=== PATIENT | female | born 1965 | race Caucasian/White ===

== ENCOUNTER 2017-02-06 13:21 | Inpatient (IN) | payer OTHER ==
[~2017-02-06] VITALS: Ht 167.6 cm; Wt 113.1 kg
[~2017-02-06 13:21] MED LIST: AMLODIPINE5 M1 PO; BACTRIM1 TAB PO; CIPRO500 MG PO; COUMADIN3 MG PO; COUMADIN5 MG PO; FLUOXETINE HCL20 MG PO; LAC PO; NOR10T PO; OXYBUTYNIN CHLOR5 MG PO
[2017-02-06 14:24] LABS: BASOPHIL % 0.5 % (0-2); PLATELET COUNT 305 x10^3mcL (130-400); RED CELL DISTRIBUTION WIDTH 14.4 % (11.5-14.5)
[2017-02-06 14:31] LABS: CALCIUM 8.3 mg/dL (8.5-10.1); CARBON DIOXIDE 21.4 mmol/L (21-32); CHLORIDE SERUM 106 mmol/L (98-107); GFR1 > 60 mL/min; GLUCOSE SERUM 96 mg/dL (74-106); POTASSIUM SERUM 3.7 mmol/L (3.5-5.1); SODIUM SERUM 138 mmol/L (136-145)
[2017-02-06 14:36] LABS: ALBUMIN 3.4 g/dL (3.4-5.0); ALKALINE PHOSPHATASE 60 U/L (46-116); ALT/SGPT 21 U/L (14-59); AST/SGOT 20 U/L (15-37); BILIRUBIN TOTAL 0.28 mg/dL (0.20-1.00); TOTAL PROTEIN, SERUM 8.2 g/dL (6.4-8.2)
[2017-02-06] MEDS ORDERED: PROZAC40 MG PO (15:17)
[2017-02-06] MEDS ORDERED: XANAX0.25 MG PO (15:18)
[2017-02-06] MEDS ORDERED: TOPAMAX25 MG PO (15:19)
[2017-02-06] MEDS ORDERED: COUMADIN3 MG PO (15:19)
[2017-02-06] MEDS ORDERED: OXYBUTYNIN CHLOR5 MG PO (15:20)
[2017-02-06 16:40] VITALS: BP 122/50
[2017-02-06 17:04] LABS: MAGNESIUM 2.2 mg/dL (1.8-2.4); PHOSPHOROUS 2.8 mg/dL (2.5-4.9); T3 TOTAL 1.22 ng/mL
[2017-02-06 17:06] LABS: CHOLESTEROL/HDL RATIO 5.2
[2017-02-06 17:07] LABS: FREE T4 1.17 ng/dL (0.76-1.46); FREE THYROXINE INDEX 3.2 ug/dL (1.4-4.5); T4(THYROXINE) 9.8 ug/dL (4.7-13.3)
[2017-02-06 21:26] VITALS: BP 121/58
[2017-02-07 05:25] VITALS: BP 106/44; BP 121/58
[2017-02-07 06:10] LABS: BASOPHIL % 0.5 % (0-2); PLATELET COUNT 278 x10^3mcL (130-400)
[2017-02-07 06:12] LABS: RED CELL DISTRIBUTION WIDTH 14.6 % (11.5-14.5)
[2017-02-07 06:37] LABS: CALCIUM 8.1 mg/dL (8.5-10.1); CARBON DIOXIDE 21.2 mmol/L (21-32); CHLORIDE SERUM 109 mmol/L (98-107); CREATININE SERUM 0.8 mg/dL (0.6-1.0); GFR1 > 60 mL/min; GLUCOSE SERUM 99 mg/dL (74-106); MAGNESIUM 2.4 mg/dL (1.8-2.4); PHOSPHOROUS 3.4 mg/dL (2.5-4.9); POTASSIUM SERUM 3.5 mmol/L (3.5-5.1); SODIUM SERUM 140 mmol/L (136-145)
[2017-02-07 09:00] VITALS: BP 121/55
[2017-02-07 11:24] VITALS: BP 121/55
[2017-02-07] MEDS ORDERED: LIPI10 PO (11:38)
[2017-02-07] MEDS ORDERED: ECO81 PO (11:40)
[2017-02-07] MEDS ORDERED: ELIQUIS2.5 MG PO (11:43)
[2017-02-07 12:00] VITALS: BP 127/60
[2017-02-09] MEDS ORDERED: BACTROBAN21 ×2 (20:40→20:51)
[2017-02-09] MEDS ORDERED: HIB240 TOP ×3 (20:40→20:55)
== END 2017-02-07 13:11 | disposition home or self-care (01) | DRG 47 ==
LOC: ED 13:21 → DU 15:30
PROVIDERS: Emergency Medicine; ADMIT Family Medicine Sports Medicine
DX: G45.9 Transient cerebral ischemic attack, unspecified (principal); D68.69 Other thrombophilia; Z68.41 Body mass index [BMI] 40.0-44.9, adult; E44.1 Mild protein-calorie malnutrition; F33.9 Major depressive disorder, recurrent, unspecified; E66.01 Morbid (severe) obesity due to excess calories; M06.9 Rheumatoid arthritis, unspecified; M79.7 Fibromyalgia; F41.9 Anxiety disorder, unspecified; E11.9 Type 2 diabetes mellitus without complications; I10 Essential (primary) hypertension; Z53.29 Procedure and treatment not carried out because of patient's decision for other reasons; M47.897 Other spondylosis, lumbosacral region; E78.5 Hyperlipidemia, unspecified; Z86.711 Personal history of pulmonary embolism; Z87.891 Personal history of nicotine dependence; Z79.01 Long term (current) use of anticoagulants; Z86.718 Personal history of other venous thrombosis and embolism; Z86.73 Personal history of transient ischemic attack (TIA), and cerebral infarction without residual deficits; Z98.51 Tubal ligation status; Z90.49 Acquired absence of other specified parts of digestive tract; Z79.899 Other long term (current) drug therapy; Z82.49 Family history of ischemic heart disease and other diseases of the circulatory system; Z82.3 Family history of stroke
CPT/HCPCS: 82962; 83880; 84439; J7030; Q0092

== ENCOUNTER 2017-04-05 15:39 | Inpatient (IN) | payer OTHER ==
[~2017-04-05] VITALS: Ht 167.6 cm; Wt 111.1 kg
[~2017-04-05 15:39] MED LIST changes: -AMLODIPINE5 M1 PO; +BACTROBAN21; +ECO81 PO; +ELIQUIS2.5 MG PO; +HIB240 TOP; +LIPI10 PO; +NOR5 PO; +PROZAC40 MG PO; +TOPAMAX25 MG PO; +XANAX0.25 MG PO
[2017-04-05 16:53] LABS: BASOPHIL % 0.4 % (0-2); PLATELET COUNT 341 x10^3mcL (130-400); RED CELL DISTRIBUTION WIDTH 13.6 % (11.5-14.5)
[2017-04-05 17:03] LABS: CALCIUM 8.9 mg/dL (8.5-10.1); CARBON DIOXIDE 22.3 mmol/L (21-32); CHLORIDE SERUM 107 mmol/L (98-107); CREATININE SERUM 0.9 mg/dL (0.6-1.0); GFR1 > 60 mL/min; GLUCOSE SERUM 125 mg/dL (74-106); POTASSIUM SERUM 3.6 mmol/L (3.5-5.1); SODIUM SERUM 141 mmol/L (136-145)
[2017-04-05 17:04] LABS: ALBUMIN 3.4 g/dL (3.4-5.0); ALKALINE PHOSPHATASE 77 U/L (46-116); ALT/SGPT 29 U/L (14-59); AST/SGOT 16 U/L (15-37); BILIRUBIN TOTAL 0.31 mg/dL (0.20-1.00); TOTAL PROTEIN, SERUM 8.5 g/dL (6.4-8.2)
[2017-04-05] MEDS ORDERED: PROZAC40 MG PO (21:00)
[2017-04-05] MEDS ORDERED: ATIVAN1 MG PO (21:01)
[2017-04-05] MEDS ORDERED: NORCO 10-325 T1 EACH PO (21:01)
[2017-04-05] MEDS ORDERED: TOPAMAX50 M1 PO (21:01)
[2017-04-05] MEDS ORDERED: XANAX0.25 MG PO (21:01)
[2017-04-05] MEDS ORDERED: GOOD SENSE ASPI81 M3 PO (21:02)
[2017-04-05] MEDS ORDERED: ELIQUIS2.5 MG (21:02)
[2017-04-05] MEDS ORDERED: NOR5 PO (21:02)
[2017-04-05] MEDS ORDERED: OXYBUTYNIN CHLOR5 MG PO (21:02)
[2017-04-05] MEDS ORDERED: LIPI10 (21:02)
[2017-04-05] MEDS ORDERED: ZANAFLEX CAPSULE4 MG PO (21:03)
[2017-04-05 21:23] LABS: microscopic required? YES; urine erythrocyte 2+ (NEGATIVE)
[2017-04-05 21:28] LABS: T3 TOTAL 0.92 ng/mL
[2017-04-05 21:32] LABS: FREE T4 1.09 ng/dL (0.76-1.46); FREE THYROXINE INDEX 2.8 ug/dL (1.4-4.5); T4(THYROXINE) 9.1 ug/dL (4.7-13.3)
[2017-04-05 21:33] LABS: AMPHETAMINE QUAL UR NONE DETECTED (NEG <=1000)
[2017-04-05 21:42] VITALS: BP 129/75
[2017-04-05 21:46] LABS: CHOLESTEROL/HDL RATIO 3.3; MAGNESIUM 2.1 mg/dL (1.8-2.4); PHOSPHOROUS 3.7 mg/dL (2.5-4.9)
[2017-04-06 05:34] VITALS: BP 132/68
[2017-04-06 06:27] LABS: BASOPHIL % 0.4 % (0-2); PLATELET COUNT 278 x10^3mcL (130-400); RED CELL DISTRIBUTION WIDTH 13.4 % (11.5-14.5)
[2017-04-06 06:43] LABS: CALCIUM 8.2 mg/dL (8.5-10.1); CARBON DIOXIDE 23.2 mmol/L (21-32); CHLORIDE SERUM 108 mmol/L (98-107); CREATININE SERUM 0.8 mg/dL (0.6-1.0); GFR1 > 60 mL/min; GLUCOSE SERUM 110 mg/dL (74-106); POTASSIUM SERUM 3.6 mmol/L (3.5-5.1); SODIUM SERUM 140 mmol/L (136-145)
[2017-04-06 09:50] VITALS: BP 136/73
[2017-04-06 12:40] VITALS: BP 143/72
[2017-04-06 16:56] VITALS: BP 149/68
[2017-04-06 21:14] VITALS: BP 125/77
[2017-04-07 05:36] VITALS: BP 137/67
[2017-04-07 06:20] LABS: CALCIUM 8.5 mg/dL (8.5-10.1); CARBON DIOXIDE 26.1 mmol/L (21-32); CHLORIDE SERUM 110 mmol/L (98-107); CREATININE SERUM 0.8 mg/dL (0.6-1.0); GFR1 > 60 mL/min; GLUCOSE SERUM 108 mg/dL (74-106); POTASSIUM SERUM 4.3 mmol/L (3.5-5.1); SODIUM SERUM 144 mmol/L (136-145)
[2017-04-07 06:45] LABS: BASOPHIL % 0.3 % (0-2); PLATELET COUNT 286 x10^3mcL (130-400); RED CELL DISTRIBUTION WIDTH 13.7 % (11.5-14.5)
[2017-04-07 08:46] VITALS: BP 138/66
[2017-04-07 13:40] VITALS: BP 140/68
[2017-04-07] MEDS ORDERED: KEFLEX500 M1 PO (14:43)
[2017-04-07] MEDS ORDERED: BD LACTINEX1.4 MG PO (14:44)
[2017-04-07] MEDS ORDERED: NITROSTAT0.4 MG SL (14:46)
[2017-04-07] MEDS ORDERED: GOOD SENSE OMEP20 MG PO (15:19)
[2017-04-07] MEDS ORDERED: BACTROBAN22 TOP (15:27)
== END 2017-04-07 16:27 | disposition home or self-care (01) | DRG 243 ==
LOC: ED 15:39 → DU 20:10
PROVIDERS: Emergency Medicine; ADMIT Family Medicine
DX: K21.9 Gastro-esophageal reflux disease without esophagitis (principal); E66.01 Morbid (severe) obesity due to excess calories; N39.0 Urinary tract infection, site not specified; M06.9 Rheumatoid arthritis, unspecified; M79.7 Fibromyalgia; M51.37 Other intervertebral disc degeneration, lumbosacral region; R31.9 Hematuria, unspecified; F31.30 Bipolar disorder, current episode depressed, mild or moderate severity, unspecified; F41.9 Anxiety disorder, unspecified; R32 Unspecified urinary incontinence; Z68.39 Body mass index [BMI] 39.0-39.9, adult; Z86.711 Personal history of pulmonary embolism; Z79.01 Long term (current) use of anticoagulants; Z86.718 Personal history of other venous thrombosis and embolism; Z86.73 Personal history of transient ischemic attack (TIA), and cerebral infarction without residual deficits; Z86.14 Personal history of Methicillin resistant Staphylococcus aureus infection; I20.9 Angina pectoris, unspecified
CPT/HCPCS: 83880; 84439; J0696; J1170; J7030; Q0092; Q9967

== ENCOUNTER 2018-01-18 07:51 | Emergency (ER) | payer OTHER ==
[~2018-01-18] VITALS: Ht 165.1 cm; Wt 114.4 kg
[~2018-01-18 07:51] MED LIST changes: +ATIVAN1 MG PO; +BACTROBAN22 TOP; +BD LACTINEX1.4 MG PO; +ELIQUIS2.5 MG; +GOOD SENSE ASPI81 M3 PO; +GOOD SENSE OMEP20 MG PO; +KEFLEX500 M1 PO; +LIPI10; +NITROSTAT0.4 MG SL; +NORCO 10-325 T1 EACH PO; +TOPAMAX50 M1 PO; +ZANAFLEX CAPSULE4 MG PO
[2018-01-18 08:03] VITALS: Ht 165.1 cm; Wt 114.4 kg
[2018-01-18 09:42] VITALS: BP 114/64
== END 2018-01-18 10:11 | disposition home or self-care (01) ==
LOC: ED 07:51
DX: M25.561 Pain in right knee (principal); M79.1 Myalgia; I10 Essential (primary) hypertension; M79.7 Fibromyalgia; Z90.49 Acquired absence of other specified parts of digestive tract; Z98.51 Tubal ligation status; Z90.89 Acquired absence of other organs
CPT/HCPCS: Q0092

== ENCOUNTER 2018-09-25 13:50 | Emergency (ER) | payer OTHER ==
[~2018-09-25] VITALS: Ht 167.6 cm; Wt 118.4 kg
[2018-09-25 13:53] VITALS: Ht 167.6 cm; Wt 118.4 kg
[2018-09-25 14:44] LABS: BASOPHIL % 0.3 % (0-2); PLATELET COUNT 267 x10^3mcL (130-400)
[2018-09-25 14:45] LABS: RED CELL DISTRIBUTION WIDTH 14.9 % (11.5-14.5)
[2018-09-25 15:45] VITALS: BP 148/87
[2018-09-25 16:16] LABS: CALCIUM 8.3 mg/dL (8.5-10.1); CARBON DIOXIDE 23.6 mmol/L (21-32); CHLORIDE SERUM 108 mmol/L (98-107); CREATININE SERUM 0.8 mg/dL (0.6-1.0); GFR1 > 60 mL/min; GLUCOSE SERUM 88 mg/dL (74-106); POTASSIUM SERUM 3.6 mmol/L (3.5-5.1); SODIUM SERUM 142 mmol/L (136-145)
[2018-09-25 16:20] LABS: ALKALINE PHOSPHATASE 76 U/L (46-116); ALT/SGPT 19 U/L (14-59); AST/SGOT 15 U/L (15-37); BILIRUBIN TOTAL 0.3 mg/dL (0.20-1.00); TOTAL PROTEIN, SERUM 7.9 g/dL (6.4-8.2)
[2018-09-25 16:21] LABS: ALBUMIN 3.2 g/dL (3.4-5.0)
== END 2018-09-25 16:18 | disposition home or self-care (01) ==
LOC: ED 13:50
PROVIDERS: Emergency Medicine
DX: R53.1 Weakness (principal); R20.0 Anesthesia of skin; R53.83 Other fatigue; R41.0 Disorientation, unspecified; I10 Essential (primary) hypertension; M79.7 Fibromyalgia; M06.9 Rheumatoid arthritis, unspecified; F31.9 Bipolar disorder, unspecified; Z98.51 Tubal ligation status; Z98.890 Other specified postprocedural states
CPT/HCPCS: 36415; Q0092

== ENCOUNTER 2019-01-16 08:42 | Emergency (ER) | payer OTHER ==
[~2019-01-16] VITALS: Ht 167.6 cm; Wt 115.7 kg
[2019-01-16 08:55] VITALS: Ht 167.6 cm; Wt 115.7 kg
[2019-01-16 09:43] LABS: BASOPHIL % 0.2 % (0-2); PLATELET COUNT 300 x10^3mcL (130-400); RED CELL DISTRIBUTION WIDTH 13.7 % (11.5-14.5)
[2019-01-16 09:58] LABS: CALCIUM 8.3 mg/dL (8.5-10.1); CARBON DIOXIDE 24.4 mmol/L (21-32); CHLORIDE SERUM 109 mmol/L (98-107); CREATININE SERUM 0.9 mg/dL (0.6-1.0); GFR1 > 60 mL/min; GLUCOSE SERUM 113 mg/dL (74-106); POTASSIUM SERUM 4.1 mmol/L (3.5-5.1); SODIUM SERUM 143 mmol/L (136-145)
[2019-01-16 10:05] LABS: ALBUMIN 3.2 g/dL (3.4-5.0); ALKALINE PHOSPHATASE 81 U/L (46-116); ALT/SGPT 23 U/L (14-59); AST/SGOT 10 U/L (15-37); LIPASE 112 IU/L (73-393); TOTAL PROTEIN, SERUM 7.9 g/dL (6.4-8.2)
[2019-01-16 12:44] VITALS: BP 105/51
[2019-01-16 13:05] LABS: UA SPECIFIC GRAVITY 1.025 (1.005-1.035); microscopic required? YES; urine erythrocyte TRACE (NEGATIVE)
== END 2019-01-16 13:01 | disposition home or self-care (01) ==
LOC: ED 08:42
PROVIDERS: Emergency Medicine
DX: E86.0 Dehydration (principal); N39.0 Urinary tract infection, site not specified; I10 Essential (primary) hypertension; M79.7 Fibromyalgia; M06.9 Rheumatoid arthritis, unspecified; Z98.890 Other specified postprocedural states
CPT/HCPCS: J1885; J2405; J7030

== ENCOUNTER 2019-11-02 15:21 | Inpatient (IN) | payer OTHER, SELFPAY ==
[~2019-11-02] VITALS: Ht 167.6 cm; Wt 117.6 kg
[2019-11-02 15:28] VITALS: Ht 167.6 cm; Wt 117.6 kg
[2019-11-02 16:35] LABS: BASOPHIL % 0.6 % (0-2); PLATELET COUNT 274 x10^3mcL (130-400); RED CELL DISTRIBUTION WIDTH 14.2 % (11.5-14.5)
[2019-11-02 16:53] LABS: CALCIUM 8.4 mg/dL (8.5-10.1); CARBON DIOXIDE 22.2 mmol/L (21-32); CREATININE SERUM 1.1 mg/dL (0.6-1.0); POTASSIUM SERUM 3.6 mmol/L (3.5-5.1)
[2019-11-02 16:58] LABS: BILIRUBIN TOTAL 0.21 mg/dL (0.20-1.00); C REACTIVE PROTEIN 2.4 mg/dL (<=0.9); TOTAL PROTEIN, SERUM 7.5 g/dL (6.4-8.2)
[2019-11-02 17:09] LABS: ALBUMIN 3.1 g/dL (3.4-5.0)
[2019-11-02 20:20] LABS: MAGNESIUM 2.2 mg/dL (1.8-2.4); PHOSPHOROUS 3.9 mg/dL (2.5-4.9)
[2019-11-02 20:43] LABS: FREE T4 1.07 ng/dL (0.76-1.46); FREE THYROXINE INDEX 2.8 ug/dL (1.4-4.5); T4(THYROXINE) 8.7 ug/dL (4.7-13.3)
[2019-11-02 21:13] VITALS: BP 119/63
[2019-11-03 05:37] VITALS: BP 126/69
[2019-11-03 07:51] LABS: BASOPHIL % 0.6 % (0-2); PLATELET COUNT 266 x10^3mcL (130-400); RED CELL DISTRIBUTION WIDTH 13.9 % (11.5-14.5)
[2019-11-03 08:04] LABS: C REACTIVE PROTEIN 2.3 mg/dL (<=0.9); CALCIUM 8.3 mg/dL (8.5-10.1); CARBON DIOXIDE 28.3 mmol/L (21-32); CHLORIDE SERUM 107 mmol/L (98-107); GFR1 > 60 mL/min; GLUCOSE SERUM 87 mg/dL (74-106); MAGNESIUM 2.3 mg/dL (1.8-2.4); POTASSIUM SERUM 3.9 mmol/L (3.5-5.1); SODIUM SERUM 143 mmol/L (136-145)
[2019-11-03 09:26] VITALS: BP 129/68
[2019-11-03 13:57] VITALS: BP 126/65
[2019-11-03 18:35] VITALS: BP 146/86
[2019-11-03 20:00] VITALS: BP 129/64
[2019-11-04 06:10] VITALS: BP 108/62
[2019-11-04 06:57] LABS: BASOPHIL % 0.4 % (0-2); PLATELET COUNT 275 x10^3mcL (130-400)
[2019-11-04 07:37] LABS: CHLORIDE SERUM 107 mmol/L (98-107); CREATININE SERUM 0.9 mg/dL (0.6-1.0); GFR1 > 60 mL/min; GLUCOSE SERUM 105 mg/dL (74-106); MAGNESIUM 2.2 mg/dL (1.8-2.4); PHOSPHOROUS 3.9 mg/dL (2.5-4.9); POTASSIUM SERUM 3.8 mmol/L (3.5-5.1); SODIUM SERUM 143 mmol/L (136-145)
[2019-11-04 08:13] VITALS: BP 115/56
[2019-11-04 10:04] LABS: T3 TOTAL 1.07 ng/mL
[2019-11-04 12:39] VITALS: BP 156/76
[2019-11-04 16:41] VITALS: BP 126/53
[2019-11-04 16:59] VITALS: BP 126/53
== END 2019-11-04 18:38 | disposition home or self-care (01) | DRG 203 ==
LOC: ED 15:21 → DU 18:39
PROVIDERS: Emergency Medicine; ADMIT Family Medicine; ATTEND Family Medicine
DX: R07.89 Other chest pain (principal); E44.1 Mild protein-calorie malnutrition; F31.9 Bipolar disorder, unspecified; Z68.42 Body mass index [BMI] 45.0-49.9, adult; M06.9 Rheumatoid arthritis, unspecified; M79.7 Fibromyalgia; M54.5 Low back pain; Z20.828 Contact with and (suspected) exposure to other viral communicable diseases; Z86.718 Personal history of other venous thrombosis and embolism; Z79.01 Long term (current) use of anticoagulants; Z86.711 Personal history of pulmonary embolism; Z86.73 Personal history of transient ischemic attack (TIA), and cerebral infarction without residual deficits; Z90.89 Acquired absence of other organs; Z90.49 Acquired absence of other specified parts of digestive tract; Z98.51 Tubal ligation status; Z82.3 Family history of stroke; Z82.49 Family history of ischemic heart disease and other diseases of the circulatory system
CPT/HCPCS: 36600; 82962; 83880; 84439; 85378; 97116-GP; G0378; Q0092; U0003-CS